=== PATIENT | female | born 1950 | race Caucasian/White ===

== ENCOUNTER → 2018-08-14 | Outpatient (CLI) | payer MEDICARE, MEDICAID ==
--- NOTE | 2018-08-15 08:16 | RADIOLOGY REPORT (SQ) ---
EXAM DESCRIPTION: CHEST 2 VIEWS COMPLETED DATE/TIME: 08/14/2018 6:59 pm REASON FOR STUDY: R06.00 DYSPNEA COMPARISON: None. TECHNIQUE: Frontal and lateral radiographic views of the chest acquired. NUMBER OF VIEWS: Two view. LIMITATIONS: None. FINDINGS: LUNGS AND PLEURA: No opacities, masses or pneumothorax. No pleural effusion. MEDIASTINUM AND HILAR STRUCTURES: No masses or contour abnormalities. HEART AND VASCULAR STRUCTURES: Heart normal size. No evidence for failure. BONES: No acute findings. HARDWARE: None in the chest. OTHER: No other significant finding. IMPRESSION: NO SIGNIFICANT RADIOGRAPHIC FINDING IN THE CHEST. TECHNICAL DOCUMENTATION: JOB ID: [id number] [employer]- All Rights Reserved Reading location - IP/workstation name: [email or web address]
== END ==
LOC: RAD 18:32
PROVIDERS: ATTEND Internal Medicine
DX: R06.00 Dyspnea, unspecified (principal); R53.83 Other fatigue
CPT/HCPCS: 71046

== ENCOUNTER 2018-09-12 21:52 | Emergency (ER) | payer MEDICARE, MEDICAID ==
[2018-09-12] MEDS ORDERED: DILTIAZEM HCL INJ 25 MG/5 ML VIAL ONE (22:07)
[2018-09-12] MEDS ORDERED: ADENOSINE INJ/PF 6 MG/2 ML SDV IV ONE ×2 (22:07→22:41)
[2018-09-12] MEDS ORDERED: METOPROLOL TARTRATE PF/INJ 5 MG/5 ML SDV IV ONE ×2 (22:20→22:42)
--- NOTE | 2018-09-12 22:45 | ER Document Report ---
ED General - General Chief Complaint: Palpitations Stated Complaint: REPORTS RAPID HEART RATE,STOMACH PAIN Time Seen by Provider: 09/12/18 22:43 Primary Care Provider: MARCY MARQUEZ MD [Primary Care Provider] - Follow up as needed Notes: Patient is a pleasant 67-year-old female presents with complaints of rapid heartbeat and dizziness. No chest pain. No diaphoresis. Patient says she feels her heart beating fast and felt as if she was in the passout therefore came to the ER. She has a history of some similar happening in the past. She says she has an irregular heartbeat. She says she is unsure if she has A. fib or not. She is followed by [facility] in [place]. Her primary care doctor is in [place]. She denies history of heart attack. No recent leg pain or leg swelling. TRAVEL OUTSIDE OF THE [place] IN LAST 30 DAYS: No - Related Data Allergies/Adverse Reactions: No Known Allergies Allergy (Unverified 09/12/18 22:47) Past Medical History - Social History Smoking Status: Unknown if Ever Smoked Frequency of alcohol use: None Drug Abuse: None Family History: Reviewed & Not Pertinent Review of Systems - Review of Systems Notes: My Normal Review Basic REVIEW OF SYSTEMS: CONSTITUTIONAL : Denies fever, chills, or sweats. Denies recent illness. EENT: Denies eye, ear, throat, or mouth pain or symptoms. Denies nasal or sinus congestion. CARDIOVASCULAR: Denies chest pain. Rapid heartbeat RESPIRATORY: Denies cough, cold, or chest congestion. Denies shortness of breath, difficulty breathing, or wheezing. GASTROINTESTINAL: Denies abdominal pain. Denies nausea, vomiting, or diarrhea. MUSCULOSKELETAL: Denies neck or back pain or joint pain or swelling. SKIN: Denies rash or skin lesions. NEUROLOGICAL: Denies altered mental status or loss of consciousness. Denies headache. Denies weakness or paralysis or loss of use of either side. Denies problems with gait or speech. Denies sensory or motor loss. ALL OTHER SYSTEMS REVIEWED AND NEGATIVE. Physical Exam - Vital signs Vitals: Temp Pulse Resp Pulse Ox 98 F 213 H 24 H 98 09/12/18 22:07 09/12/18 22:07 09/12/18 22:07 09/12/18 22:07 - Notes Notes: General Appearance: Well nourished, alert, cooperative, no acute distress, no obvious discomfort. Vitals: reviewed, See vital signs table. Head: no swelling or tenderness to the head Eyes: PERRL, EOMI, Conjuctiva clear Mouth: No decreasd moisture Neck: Supple, no neck swelling. Lungs: No wheezing, No rales, No rhonci, No accessory muscle use, good air exchange bilaterally. Heart: Rapid rate, Regular rythm, No murmur, no rub Abdomen: Normal BS, soft, No rigidity, No abdominal tenderness, No guarding, no rebound, no abdominal masses, no organomegaly Extremities: strength 5/5 in all extremities, good pulses in all extremities, no swelling or tenderness in the extremities, no edema. Skin: warm, dry, appropriate color, no rash Neuro: speech clear, oriented x 3, normal affect, responds appropriately to questions. Course - Re-evaluation Re-evalutation: 09/12/18 22:44 Patient was in SVT with rate in the 220s. We did give her a dose of adenosine 6 mg. This converted her to sinus tachycardia with a rate in the 150s. Watch for little while to monitor and she is only brought her heart rate down to around 135 but would not go below 135. I gave her 5 mg of metoprolol IV. Patient's heart rate is now down around 120. She says she feels much improved. She continues to deny any chest pain or back pain. She says that she feels very well at this moment. We will continue closely monitor and await her lab results to come back. 09/13/18 00:30 On reevaluation patient's heart rate continues to improve. She remains in sinus rhythm. Current heart rate is 106. Due to the fact that she is remaining still some tachycardia we will go for the CTa of the chest to rule other potential causes. Patient is agreeable with this plan. 09/13/18 02:36 She remains asymptomatic. She continues to deny any chest pain or shortness of breath. The only time she had symptoms was when she was in SVT. At that time she felt dizzy but did not have chest pain. Troponin is negative. CTA of the chest is negative. Her heart rate is now bouncing between 98 and 105. I was able get further history from her. It appears is not clear that she has A. fib. This makes sense being that she is on a blood thinner. She and her family said that she has had very similar episodes to what she had tonight in the past and has had to receive medications to stop her arrhythmia. She says this sometimes occurs when she drinks caffeine or coffee and sometimes make her heart flutter. She admits that before her symptoms started tonight she did have a moderate amount of caffeine. She said she drank more than what she normally drinks. He has not had her nighttime dose of her rate controlling medication. She cannot remember the name of it. She lives in [place]. I therefore give her 12.5 mg of metoprolol tartrate here before she leaves. I urged her to take her medications in the morning and to follow-up closely with her [facility]. I encouraged her to return to ER immediately if she has recurrent palpitations, any chest pain, any difficulty breathing, or if she feels unwell in any way. Patient agrees with plan and will be discharged home. Dictation of this chart was performed using voice recognition software; therefore, there may be some unintended grammatical errors. 09/13/18 02:38 - Vital Signs Vital signs: Temp Pulse Resp BP Pulse Ox 98 F 213 H 18 150/75 H 95 09/12/18 22:07 09/12/18 22:07 09/13/18 02:02 09/13/18 02:02 09/13/18 02:02 - Laboratory Result Diagrams: 09/12/18 22:15 09/12/18 22:15 Laboratory results interpreted by me: 09/12/18 09/12/18 09/12/18 22:15 22:15 22:15 WBC 10.7 H Glucose 143 H Total Protein 8.7 H Albumin 5.1 H TSH 4.73 H - EKG Interpretation by Me Additional EKG results interpreted by me: 09/12/18 23:09 EKG is reviewed and interpreted by me. EKG shows SVT with a rate of 208 bpm. QRS duration is within normal range. QTc interval is normal. Patient does have some ST segment depression in the lateral leads. EKG #2 is reviewed and interpreted by me. EKG shows sinus tachycardia with a rate of [address] segment depression lateral precordial leads. No ST segment elevation. ID interval is difficult to truly determine the syncope is. At the end of the T wave. QRS duration and QT intervals are within normal range. EKG #3 is reviewed and interpreted by me. EKG is 1 hour post adenosine conversion. EKG shows sinus tachycardia with a rate of [address] segment elevation or depression. No ischemic T wave inversions. ID interval, QRS duration, QT intervals are within normal range. 09/12/18 23:23 Discharge - Discharge Clinical Impression: SVT (supraventricular tachycardia) Condition: Good Disposition: HOME, SELF-CARE Additional Instructions: You had an arrhythmia called supraventricular tachycardia (SVT). This is an arrhythmia where your heart gets beating very fast and uncontrollable like you were experiencing tonight. We are able to get you out of this rhythm by giving you a medication that converted you back to a normal rhythm. Currently you are still in a normal rhythm. Your blood work looking at your heart does not show any concerning findings. CT scan of your chest did not show any evidence of clotting in her chest. It did show us a few small nodules in your lungs. Recommendation is to have a repeat CT scan in 1 year to make sure that these nodules are not increasing in size. Please avoid any and all caffeine. Please start taking your home medications again in the morning. Please follow-up with your [facility] or your doctor on Monday for reevaluation. Have a very low threshold to return to the ER if you have any chest pain, any difficulty breathing, dizziness or passing out, or if you feel like your heart is beating fast. Referrals: MARCY MARQUEZ MD [Primary Care Provider] - Follow up as needed
[2018-09-12 22:56] LABS: ABSOLUTE BASOPHILS # (AUTO) 0.1 10^3/uL (0.0-0.2); ABSOLUTE EOSINOPHILS # (AUTO) 0.4 10^3/uL (0.0-0.6); ABSOLUTE LYMPHOCYTES (AUTO) 2.5 10^3/uL (0.5-4.7); ABSOLUTE MONOCYTES (AUTO) 0.7 10^3/uL (0.1-1.4); EOSINOPHILS % (AUTO) 3.6 % (0-6); HEMATOCRIT 45.1 % (36.0-47.0); HEMOGLOBIN 15.5 g/dL (12.0-15.5); LYMPHOCYTES % (AUTO) 23.6 % (13-45); MEAN CORPUSCULAR HGB CONC 34.3 g/dL (32.0-36.0); MEAN CORPUSCULAR VOLUME 91 fl (80-97); MONOCYTES % (AUTO) 6.4 % (3-13); PLATELET COUNT 364 10^3/uL (150-450); RED BLOOD COUNT 4.99 10^6/uL (3.72-5.28); RED CELL DISTRIBUTION WIDTH 13.7 % (11.5-14.0); SEGMENTED NEUTROPHILS % (AUTO) 65.4 % (42-78); TOTAL CELLS COUNTED % (AUTO) 100 %; WHITE BLOOD COUNT 10.7 10^3/uL (4.0-10.5)
[2018-09-12 23:06] LABS: ALANINE AMINOTRANSFERASE 22 U/L (9-52); ALBUMIN 5.1 g/dL (3.5-5.0); ALKALINE PHOSPHATASE 71 U/L (38-126); ANION GAP 16 (5-19); ASPARTATE AMINO TRANSFERASE 32 U/L (14-36); BILIRUBIN,DIRECT 0.3 mg/dL (0.0-0.4); BILIRUBIN,TOTAL 0.6 mg/dL (0.2-1.3); BLOOD UREA NITROGEN 14 mg/dL (7-20); CARBON DIOXIDE 22 mmol/L (22-30); CHLORIDE 103 mmol/L (98-107); GLUCOSE 143 mg/dL (75-110); POTASSIUM 4.6 mmol/L (3.6-5.0); SODIUM 140.5 mmol/L (137-145); TOTAL PROTEIN 8.7 g/dL (6.3-8.2)
--- NOTE | 2018-09-12 23:18 | RADIOLOGY REPORT (SQ) ---
EXAM DESCRIPTION: XR CHEST 1 VIEW COMPLETED DATE/TME: 09/12/2018 22:43 CLINICAL HISTORY: 67 years, Female, dyspnea Comparison: None FINDINGS: No focal lung consolidation. No pleural effusion. No pneumothorax. Cardiac and mediastinal silhouette is unremarkable. No acute osseous abnormality. Soft tissues are unremarkable. IMPRESSION: No acute findings. No focal lung consolidation.
[2018-09-12 23:23] LABS: FREE T4 (FREE THYROXINE) 0.79 ng/dL (0.78-2.19)
[2018-09-12 23:37] LABS: THYROID STIMULATING HORMONE 4.73 uIU/mL (0.47-4.68)
--- NOTE | 2018-09-12 23:40 | EKG REPORT ---
SEVERITY:- ABNORMAL ECG - SUPRAVENTRICULAR TACHYCARDIA REPOLARIZATION ABNORMALITY, PROB RATE RELATED : Confirmed by: Tania Curry 12-Sep-2018 23:38:58
[2018-09-13] MEDS ORDERED: NORMAL SALINE 1000 ML 1,000 ML IV ONE (00:25)
--- NOTE | 2018-09-13 02:14 | RADIOLOGY REPORT (SQ) ---
EXAM DESCRIPTION: CT CHEST ANGIOGRAPHY WITHOUT THEN WITH IV CONTRAST COMPLETED DATE/TME: 09/13/2018 00:25 CLINICAL HISTORY: 67 years, Female, tachycardia COMPARISON: None. TECHNIQUE: Axial CT images of the chest were obtained after the administration of IV contrast. MPR and MIP reconstructions were performed. DLP [id number] Images stored on PACS. All CT scanners at this facility use dose modulation, iterative reconstruction, and/or weight based dosing when appropriate to reduce radiation dose to as low as reasonably achievable (ALARA). [facility]: Dose Right [facility]: CareDose [facility]: Dose Right [facility]: Teradose 4D [facility]: [employer] LIMITATIONS: None. FINDINGS: No pulmonary embolism is detected. The central airways are patent. The heart is normal in size. There is no pericardial effusion. The thoracic aorta appears unremarkable. There is no new segmental or hilar lymphadenopathy. There are scattered nodules within the lower lobes, which measure up to 4 mm in size There are no lytic or blastic bone lesions. The visualized portions of the upper abdomen are unremarkable. There is no focal consolidation, pneumothorax, or pleural effusion. IMPRESSION: No CT evidence of acute pulmonary embolism. Pulmonary nodules measuring up to 4 mm in size. Recommend follow-up CT scan in 12 months to assess for stability. TECHNICAL DOCUMENTATION: Quality ID # [id number]: Final reports with documentation of one or more dose reduction techniques (e.g., Automated exposure control, adjustment of the mA and/or kV according to patient size, use of iterative reconstruction technique) copyright 2010 [employer]- All Rights Reserved
[2018-09-13 02:15] VITALS: BP 150/75
[2018-09-13] MEDS ORDERED: METOPROLOL TARTRATE 25 MG TABLET PO ONE (02:35)
== END 2018-09-13 02:49 | disposition home or self-care (01) ==
LOC: ER 21:52
DX: I47.1 Supraventricular tachycardia (principal); R42 Dizziness and giddiness; Z79.899 Other long term (current) drug therapy
CPT/HCPCS: 93005; 99285; 96361; 96374; 96375; 36415; 84439; 83735; 84443; 85025; 80053; 84484; 71045; 71275; 93010; J3490; J7030; J0153; A9270